=== PATIENT | female | born 1955 | race Two or more races ===

== ENCOUNTER 2018-01-29 17:00 | Outpatient (CLI) | payer OTHER | END 2018-01-29 17:12 | disposition home or self-care (01) | LOC: RAD 17:00 | DX: M15.0 Primary generalized (osteo)arthritis (principal) ==

== ENCOUNTER 2018-12-17 12:41 | Outpatient (CLI) | payer OTHER | END 2018-12-17 12:43 | disposition home or self-care (01) | LOC: SONOGRAMA 12:41 | DX: N60.11 Diffuse cystic mastopathy of right breast (principal); N60.12 Diffuse cystic mastopathy of left breast ==

== ENCOUNTER 2020-03-31 12:13 | Outpatient (CLI) | payer OTHER | END 2020-03-31 12:21 | disposition home or self-care (01) | LOC: RAD 12:13 | PROVIDERS: ATTEND Physical Medicine & Rehabilitation Hospice and Palliative Medicine | DX: M54.5 Low back pain (principal) ==

== ENCOUNTER 2020-05-06 15:02 | Outpatient (CLI) | payer OTHER | END 2020-05-06 15:35 | disposition home or self-care (01) | LOC: RAD 15:02 | PROVIDERS: ATTEND Ophthalmology | DX: I10 Essential (primary) hypertension (principal); I15.8 Other secondary hypertension ==

== ENCOUNTER 2020-08-06 15:40 | Outpatient (CLI) | payer OTHER | END 2020-08-06 15:50 | disposition HB | LOC: RAD 15:40 | DX: M43.8X5 Other specified deforming dorsopathies, thoracolumbar region (principal); C90.00 Multiple myeloma not having achieved remission ==

== ENCOUNTER 2020-12-04 16:23 | Outpatient (CLI) | payer OTHER | END 2020-12-04 16:34 | disposition home or self-care (01) | LOC: RAD 16:23 | PROVIDERS: ATTEND Ophthalmology | DX: I15.8 Other secondary hypertension (principal); R07.89 Other chest pain; I10 Essential (primary) hypertension; Z00.00 Encounter for general adult medical examination without abnormal findings ==

== ENCOUNTER 2021-07-06 08:00 | Outpatient (CLI) | payer OTHER | END 2021-07-06 11:37 | disposition home or self-care (01) | LOC: PPH VACUNA 08:00 | PROVIDERS: ATTEND Emergency Medicine Pediatric Emergency Medicine | DX: Z23 Encounter for immunization (principal) ==

== ENCOUNTER 2023-11-21 15:15 | Outpatient (CLI) | payer OTHER | END 2023-11-21 15:23 | disposition home or self-care (01) | LOC: RAD 15:15 | PROVIDERS: ATTEND Internal Medicine | DX: R07.1 Chest pain on breathing (principal); R07.9 Chest pain, unspecified; R07.82 Intercostal pain; M54.6 Pain in thoracic spine; M54.51 Vertebrogenic low back pain ==